=== PATIENT | female | born 2000 | race Two or more races ===

== ENCOUNTER 2021-04-26 12:23 | Emergency (ER) | payer OTHER ==
[~2021-04-26] VITALS: Ht 160 cm; Wt 62.6 kg
[2021-04-26 13:22] LABS: Urine Bacteria MOD /hpf (None Seen); Urine Blood Negative /uL (Negative); Urine Specific Gravity 1.004 (1.001-1.035); Urine WBC 25 /hpf (0 - 5)
[2021-04-26 13:33] VITALS: BP 156/96
== END 2021-04-26 14:07 | disposition home or self-care (01) ==
LOC: ER 12:23
DX: N39.0 Urinary tract infection, site not specified (principal)
CPT/HCPCS: 81001

== ENCOUNTER 2024-12-14 09:53 | Outpatient (CLI) | payer MEDICAID ==
[2024-12-14 10:23] LABS: Basophils # (auto) 0 10 ^3/uL (0-0.2); Basophils % (auto) 0.3 % (0.0-2.0); Eosinophils # (auto) 0.1 10 ^3/uL (0-0.8); Eosinophils % (auto) 1.3 % (0.0-7.0); Hematocrit 40.6 % (36.0-46.0); Hemoglobin 14.5 g/dL (12.2-16.2); Lymphocytes # (auto) 1.6 10 ^3/uL (0.4-5.4); Lymphocytes % (auto) 22.5 % (10.0-50.0); Mean Corpuscular Hgb Conc. 35.6 g/dL (32.0-36.0); Mean Corpuscular Volume 92.6 fL (80.0-100.0); Monocytes # (auto) 0.4 10 ^3/uL (0-1.3); Monocytes % (auto) 5.8 % (0.0-12.0); Neutrophils # (auto) 4.9 10 ^3/uL (1.6-8.6); Neutrophils % (auto) 70.1 % (37.0-80.0); Nucleated Red Blood Cells % 0.1 %; Platelet Count (auto) 270 10^3/uL (140-450); Red Blood Cells 4.38 10^6/uL (4.0-5.20); Red Cell Distribution Width 12.5 % (11.8-14.3)
[2024-12-14 10:52] LABS: Amphetamine Screen, Urine Neg (NEGATIVE); Barbiturate Scree,Urine Neg (NEGATIVE); Benzodiazephine Screen, Urine Neg (NEGATIVE); Cocaine Screen, Urine Neg (NEGATIVE); Opiate Scree,Urine Neg (NEGATIVE)
[2024-12-14 11:18] LABS: Phencyclidine Screen, Urine Neg (NEGATIVE)
[2024-12-14 11:21] LABS: Cannabinoid Screen, Urine Neg (NEGATIVE)
[2024-12-15 22:07] LABS: Chlamydia Trachomatis, NAA Negative (Negative); Neisseria gonorrhoeae, NAA Negative (Negative)
== END 2024-12-14 17:00 | disposition home or self-care (01) ==
LOC: LAB 09:53
PROVIDERS: ATTEND Obstetrics & Gynecology
DX: Z34.80 Encounter for supervision of other normal pregnancy, unspecified trimester (principal); Z3A.00 Weeks of gestation of pregnancy not specified; Z72.51 High risk heterosexual behavior
CPT/HCPCS: 36415; 80307; 83036; 84144; 84702; 85025; 86592; 86703; 86762; 86780; 86850; 86900; 86901; 87086; 87340